=== PATIENT | female | born 1960 | race Hispanic/Latino ===

== ENCOUNTER 2017-03-17 06:55 | Day surgery (SDC) | payer MEDICAID ==
[2017-03-13 11:29] VITALS: BMI 24.6
[2017-03-17] MEDS ORDERED: Propofol 10 mg/ml Inj (20 ML) ONE ×3 (07:27→08:33)
[2017-03-17] MEDS ORDERED: Sodium Chloride 0.9% 1,000 ML IV SCH (09:00)
[2017-03-17 09:11] VITALS: RESP 16
[2017-03-17 09:14] VITALS: O2SAT 100
[2017-03-17 09:51] VITALS: BP 127/89; PULSE 60; TEMP 97.8
== END 2017-03-17 10:15 | disposition home or self-care (01) ==
LOC: ENDO 06:55
PROVIDERS: ATTEND Internal Medicine Gastroenterology
DX: Z12.11 Encounter for screening for malignant neoplasm of colon (principal); K63.5 Polyp of colon; K64.1 Second degree hemorrhoids; K21.0 Gastro-esophageal reflux disease with esophagitis; K29.70 Gastritis, unspecified, without bleeding; R13.10 Dysphagia, unspecified